=== PATIENT | male | born 1955 | race Caucasian/White ===

== ENCOUNTER 2016-10-17 09:23 | Inpatient (IN) | payer OTHER ==
[~2016-10-17] VITALS: Ht 170.2 cm; Wt 108.0 kg
[~2016-10-17 09:23] MED LIST: B COMPLEX #11 EACH; COUMADIN1 MG PO; DIGOXIN125 MCG PO; DIGOXIN250 MCG PO; FLAXSEED OIL1000 M2 PO; GABAPENTIN300 MG PO; IBUPROFEN800 MG PO; IRON325 M1 PO; LISINOPRIL10 MG PO; METAXALONE800 MG PO; METOPROLOL TART50 MG PO; MULTAQ400 MG PO; PERCOCET 5/31 TABLET PO; SIMVASTATIN20 MG PO; SINGULAIR10 MG PO; TYLENOL ARTHRI650 MG PO; WARFARIN SODIU7.5 MG PO
[2016-10-17 11:15] VITALS: BP 125/87
[2016-10-17 11:37] LABS: INTER. NORMALIZED RATIO 1.1; PROTHROMBIN TIME 10.9 (9.2-11.2)
[2016-10-17] MEDS ORDERED: PERCOCET 5/31 TABLET PO (15:06)
[2016-10-17] MEDS ORDERED: VISTARIL25 MG PO (15:06)
[2016-10-17 17:07] VITALS: BP 139/91
[2016-10-17 18:30] VITALS: BP 146/72
[2016-10-17 20:28] VITALS: BP 119/73
[2016-10-17 22:32] VITALS: BP 109/58
[2016-10-18] VITALS (7 sets, daily range): BP systolic 101–131; BP diastolic 58–74
[2016-10-18 05:20] LABS: HEMATOCRIT 38.3 % (38.0-50.0); MCV 91.2 FL (86-99)
[2016-10-18 05:43] LABS: ANION GAP 8 MEQ/L (2-14); CHLORIDE 106 MEQ/L (99-109); GFR ESTIMATE (CALCULATED) > 59 mL/min/; GLUCOSE 117 mg/dL (70-99); POTASSIUM 3.7 MEQ/L (3.7-5.4); SAMPLE HEMOLYSIS CHECK 0; SAMPLE ICTERIC CHECK 0; SAMPLE LIPEMIA CHECK 0; SODIUM 139 MEQ/L (136-147); UREA NITROGEN (BUN) 14 mg/dL (9-23)
[2016-10-18 05:55] LABS: INTER. NORMALIZED RATIO 1.1; PROTHROMBIN TIME 11.4 (9.2-11.2)
[2016-10-18] MEDS ORDERED: NORCO 5/3251 TABLET PO (16:17)
[2016-10-19 04:13] VITALS: BP 137/79
[2016-10-19 05:32] LABS: HEMATOCRIT 37.4 % (38.0-50.0); MCV 90.3 FL (86-99)
[2016-10-19 05:40] LABS: INTER. NORMALIZED RATIO 1.3; PROTHROMBIN TIME 13.6 (9.2-11.2)
[2016-10-19 08:09] VITALS: BP 132/77
[2016-10-19] MEDS ORDERED: COUMADIN2.5 MG PO (11:27)
[2016-10-19 11:38] VITALS: BP 126/78
[2016-10-19 14:44] VITALS: BP 113/62
== END 2016-10-19 14:50 | DRG 470 ==
LOC: 2SOUTH 09:23 → 3WEST 10:16 → 2SOUTH 10:16 → 3WEST 16:54
PROVIDERS: Orthopaedic Surgery
PROC: 0SRD0J9 Replacement of Left Knee Joint with Synthetic Substitute, Cemented, Open Approach (ICD-10-PCS; principal; 2016-10-17)
DX: M17.12 Unilateral primary osteoarthritis, left knee (principal); I48.91 Unspecified atrial fibrillation; G47.30 Sleep apnea, unspecified; I10 Essential (primary) hypertension; Z79.01 Long term (current) use of anticoagulants
CPT/HCPCS: 80048; 85014; 85018; 85610; C1713; J0690; J1885; J2250; J2405; J7050; J7120